=== PATIENT | male | born 1990 | race Caucasian/White ===

== ENCOUNTER 2018-06-18 09:30 | Emergency (ER) | payer OTHER ==
--- NOTE | 2018-06-18 10:51 | XRAY Report ---
Reason: avulsion to 3rd digit left hand. Procedure Date: 06/18/2018 Accession Number: [id number] / [id number] Procedure: XR - Finger(s) LT CPT Code: FULL RESULT: EXAM: RIGHT/LEFT 1st/2nd/3rd/4th/5th DIGIT RADIOGRAPHY EXAM DATE: 06/18/2018 10:33 AM. CLINICAL HISTORY: Avulsion to 3rd digit left hand. COMPARISON: None. TECHNIQUE: 3 views. FINDINGS: There is a soft tissue defect of the tip of the finger. Small bone-like densities of the fingertip may represent fracture fragments versus foreign bodies. No other acute findings. IMPRESSION: Favor very small fracture fragments of the distal phalanx, although findings could represent foreign bodies. Correlate clinically. RADIA
[2018-06-18] MEDS: TETANUS/DIPHTHERIA/PERTUSSIS 0.5 ML SYRINGE IM ONE (11:09)
[2018-06-18] MEDS: cephALEXin 250 MG CAPSULE PO STA (11:10)
[2018-06-18] MEDS: LIDOCAINE 1% 2 ML VIAL SUBQ STA (11:10)
--- NOTE | 2018-06-18 11:42 | ED Physician Documentation ---
PD HPI UPPER EXT INJURY - Stated complaint Stated Complaint: LEFT FINGER LAC - Chief complaint Chief Complaint: Laceration - History obtained from History obtained from: Patient - History of Present Illness Location: Left, Finger (middle) Where injury occurred: Work Timing - onset: How many hours ago (1) - Additonal information Additional information: The patient is a 27-year-old male who cut his left middle finger with a skill saw less than one hour prior to arrival while at work. He is right hand dominant. He denies any other injuries. He is uncertain of his last tetanus booster. Review of Systems Skin: reports: Laceration (s) Musculoskeletal: reports: Extremity pain (left middle finger) Neurologic: denies: Focal weakness, Numbness PD PAST MEDICAL HISTORY - Present Medications Home Medications: Ambulatory Orders Medication Instructions Recorded Confirmed Hydrocodone/Acetaminophen 1 - 2 each PO Q6H PRN #14 tablet 06/18/18 [Hydrocodon-Acetaminophen 5-325] cephALEXin [Cephalexin] 500 mg PO TID #15 tablet 06/18/18 - Allergies Allergies/Adverse Reactions: Allergies Allergy/AdvReac Type Severity Reaction Status Date / Time amoxicillin Allergy Rash Verified 06/18/18 09:37 Penicillins Allergy Rash Verified 06/18/18 09:37 - Immunizations Immunizations: TDAP >10years/unknown PD ED PE NORMAL - Vitals Vital signs reviewed: Yes (normal) - General General: Alert and oriented X 3, Well developed/nourished - HEENT HEENT: Atraumatic - Respiratory Respiratory: No respiratory distress - Derm Derm: No rash - Extremities Extremities: Other (There is a jagged wound across the tip of the left middle finger involving the distal fingernail and fingertip. There is no involvement of the DIP joint. He has full flexion and extension of the DIP, PIP, and MCP joints against resistance. Distal neurovascular is intact.) - Neuro Neuro: Alert and oriented X 3, No motor deficit, No sensory deficit Results - Vitals Vitals: Vital Signs - 24 hr 06/18/18 06/18/18 09:34 11:57 Temperature 35.8 C L Heart Rate 76 70 Respiratory 15 16 Rate Blood Pressure 126/86 H 107/59 L O2 Saturation 100 98 Oxygen O2 Source Room air - Rads (name of study) Left middle finger Radiology: Prelim report reviewed, EMP read contemporaneously, See rad report (Soft tissue defect of the tip of the finger. Small michael peyton densities of the fingertip likely represent fracture fragments, versus foreign bodies. No other acute findings.) Procedures - Laceration (location) left middle fingertip Length in cm: 1 Wound type: Irregular, Other (to bone tuft) Neurovascular status: Sensory intact, Motor intact, Vascular intact Tendon involvement: Tendon intact Anesthesia: Lidocaine 1% Wound Preparation: Hibiclens, Irrigated copiously NS, FB removed (few dirt fragments) Skin layer closure: Nylon, Interrupted, Size #-0 - enter number (5), Sutures - enter # (3) Other: Patient tolerated well, No complications, Neurovascular intact, Dressing applied, Tetanus booster given Complexity: Simple PD MEDICAL DECISION MAKING - ED course Complexity details: reviewed results, re-evaluated patient, considered differential, d/w patient, other (L&I form was completed.) ED course: The patient's presentation is significant for circular saw injury to the tip of the left middle finger. This resulted in open fracture involving the tuft of the distal phalanx, injury to the distal nailbed, and soft tissue loss. Treatment in the emergency department included thorough cleaning of the wound after digital block was performed using 1% lidocaine. The wound edges were roughly approximated using 5-0 nylon simple sutures. Tetanus booster was administered. Cephalexin 500 mg is administered orally. He is being discharged with prescription for cephalexin. I discussed with him the expected course of healing, outpatient follow-up with orthopedic surgeon, as well as potentially worrisome signs or symptoms that should prompt reevaluation in the emergency department. An L&I form was completed. Departure - Departure Disposition: 01 Home, Self Care Clinical Impression: Contact with powered saw as cause of accidental injury, Open fracture of tuft of distal phalanx of finger Instructions: ED Fx Finger Open Follow-Up: [facility] [Provider Group] Prescriptions: cephALEXin [Cephalexin] 500 mg PO TID #15 tablet Hydrocodone/Acetaminophen [Hydrocodon-Acetaminophen 5-325] 1 - 2 each PO Q6H PRN #14 tablet PRN Reason: pain Comments: Keep your left hand elevated as much the time as possible for the next 3 days. Keep the wound clean, and apply new wound dressing daily. Follow-up for suture removal in 10-12 days. Return to the emergency department if you develop any sign of infection, or otherwise worsening symptoms. Forms: Activity restrictions Discharge Date/Time: 06/18/18 11:58
[2018-06-18] MEDS: BACITRACIN OINT TOP STA (11:56)
[2018-06-18 11:58] VITALS: BP 107/59
== END 2018-06-18 11:58 | disposition home or self-care (01) ==
LOC: ED 09:30
DX: S62.663B Nondisplaced fracture of distal phalanx of left middle finger, initial encounter for open fracture (principal); W31.2XXA Contact with powered woodworking and forming machines, initial encounter; Y99.0 Civilian activity done for income or pay; Z23 Encounter for immunization
CPT/HCPCS: 1040M; 12001; 73140; 90471; 90715; 99283; A9270